=== PATIENT | female | born 1980 | race Hispanic/Latino ===

== ENCOUNTER → 2018-03-12 | Day surgery (SDC) | payer OTHER ==
[~2018-03-12] MED LIST: FENTANYL CITRATE/PF 100MCG/2 ML INJ ONE; GERITOL COMPLE1 EACH; MIDAZOLAM HCL 5MG/ML 2ML VIAL ONE; PROPOFOL IV EMULSION 10 MG/ML 50 ML VIAL ONE; VIAMIN
--- NOTE | 2018-03-12 17:23 | Operative Report ---
DATE OF PROCEDURE: March 12, 2018 REFERRING PHYSICIAN: Dr. Albina Alcala. PROCEDURE PERFORMED: Colonoscopy with polypectomy. INDICATIONS FOR COLONOSCOPY: Rectal bleeding. MEDICATION: Patient was done under MAC. Please see anesthesiologist's note. PROCEDURE: With patient in left lateral decubitus position, flexible fiberoptic Olympus colonoscope was inserted into the rectum with ease and advanced all the way to the cecum. It was then withdrawn slowly. Mucosa overlying the cecum, ascending colon, transverse colon, and descending colon appeared to be within normal limits. Diverticular disease was noted in the sigmoid colon. Two minute polyps were hot biopsied from the rectum. The scope was then retroflexed into the distal rectum and large internal hemorrhoids were noted, none of which was actively bleeding. The scope was then straightened out and was subsequently withdrawn. Questionable old anal fissure was noted on the way out. Patient tolerated the procedure well. IMPRESSION 1. Diverticulosis. 2. Rectal polyps x2, hot biopsied. 3. Large internal hemorrhoids, none actively bleeding. 4. Question of old healed anal fissure. PLAN: Follow up histology. Initiate high-fiber low-fat diet. Initiate high-fiber supplement. Start hydrocortisone suppositories 25 mg b.i.d. x10 days then p.r.n. If bleeding does not stop by time the patient is seen in the office on follow up, we will go for hemorrhoidectomy. She will need a followup appointment, and I repeat she will need a followup colonoscopy in 3-5 years. Job#: [id number] KASSANDRA cc:DR. ALBINA ALCALA
--- OUTSIDE RECORDS SUMMARY | 2018-03-15 10:32 | XMS REPORT ---
Author Author [facility] Address Unknown Phone Unavailable Care Team Providers Care Sales Mgr Name Role Phone Unavailable Unavailable Problems This patient has no known problems. Allergies, Adverse Reactions, Alerts This patient has no known allergies or adverse reactions. Medications This patient has no known medications. Encounters Start Date/Time End Date/Time Encounter Type Admission Type Attending [facility] [place] Facility Care Department Encounter ID [id number] 00:00:00 2017-05-10 00:00:00 Outpatient [facility] [id number]
== END | disposition home or self-care (01) ==
LOC: OR 13:27
PROVIDERS: ATTEND Internal Medicine Gastroenterology
DX: K92.1 Melena (principal); K62.1 Rectal polyp; K57.30 Diverticulosis of large intestine without perforation or abscess without bleeding; K64.8 Other hemorrhoids; R14.2 Eructation; R03.0 Elevated blood-pressure reading, without diagnosis of hypertension; Z68.37 Body mass index [BMI] 37.0-37.9, adult
CPT/HCPCS: 45384; 81025; J2250; 45378